=== PATIENT | male | born 1945 | race Caucasian/White ===

== ENCOUNTER 2016-12-08 13:13 | Emergency (ER) | payer MEDICARE ==
[2016-12-08] MEDS ORDERED: Thiamine HCl 200 MG/2 ML VIAL ONE (13:32)
[2016-12-08 14:01] LABS: ALT (SGPT) 31 U/L (8-55); AST (SGOT) 109 U/L (5-34); Albumin 3.9 g/dL (3.4-4.8); Alkaline Phosphatase 99 U/L (40-150); Anion Gap 14 mmol/L (10-20); BUN (Urea Nitrogen) 8 mg/dL (8.4-25.7); Bilirubin, Total 1.5 mg/dL (0.2-1.2); Calc. Creatinine Clearance 0 mL/min (70-130); Calcium 8.4 mg/dL (7.8-10.44); Carbon Dioxide 23 mmol/L (23-31); Chloride 88 mmol/L (98-107); Estimated GFR-MDRD Greater than 90; Glucose 116 mg/dL (80-115); Lipase 29 U/L (8-78); Potassium 3.8 mmol/L (3.5-5.1); Protein, Total 7.9 g/dL (5.8-8.1); Sodium 121 mmol/L (136-145)
[2016-12-08 14:05] LABS: CKMB 2.3 ng/mL (0-6.6); Troponin I Less than 0.010 ng/mL (< 0.028)
[2016-12-08 14:07] LABS: #Eosinphils 0.1 thou/uL (0.0-0.7); #Lymphocytes 0.8 thou/uL (1.20-3.40); #Monocytes 0.6 thou/uL (0.11-0.59); #Neutrophils 3.7 thou/uL (1.40-6.50); %Basophils 0.8 % (0.0-1.0); %Eosinophils 1.2 % (0.0-10.0); %Monocytes 11.2 % (0.0-10.0); %Neutrophils 70.8 % (42.0-75.0); Hemoglobin 13.9 g/dL (14.0-18.0); Large Platelets SLIGHT; MDiff Complete? YES; Mean Corpuscular HGB CONC 37.2 g/dL (32.0-36.0); Mean Platelet Volume 9.5 fL (7.4-10.4); PLT Morphology Comment NO PATIENT HISTORY. BLOOD SMEAR CONFIRMS PLATLET COUNT.; Platelet Count 90 thou/uL (130-400); RBC Distribution Width 11.2 % (11.5-14.5); Red Blood Cell (RBC) Count 3.98 mill/uL (4.70-6.10); White Blood Cell (WBC) Count 5.2 thou/uL (4.8-10.8)
--- NOTE | 2016-12-08 18:42 | CT ---
CT OF THE BRAIN WITHOUT CONTRAST: Date: 12/08/[address] shows mild atrophy and mild compensatory dilatation of the ventricles. Some minimal deep white matter lucency is probably due to minor degrees of chronic ischemic change. There were n o findings strongly suggestive of an acute stroke. No mass or hemorrhage was seen. The calvarium crystal ears intact and the visible sinuses are clear. The ventricles are commensurate with the degree of at rophy present. IMPRESSION: Atrophy and chronic ischemic changes. No acute intracranial findings. POS: HOME
--- NOTE | 2016-12-08 18:43 | RAD ---
PORTABLE CHEST: Date: 12/08/16 An AP portable film at 1330 hours is compared with a 10/12/07 study. The heart is normal in size. There is no congestive change or pleural effusion. A little basilar amaris ear streaking, particularly on the right, is probably some atelectasis. No major lobar infiltrate wa s seen. The trachea is midline. IMPRESSION: Other than perhaps some minimal basilar atelectasis, no acute findings. POS: HOME
== END 2016-12-08 14:54 | disposition short-term general hospital (02) ==
LOC: BURERS 13:13
DX: E87.1 Hypo-osmolality and hyponatremia (principal); F10.10 Alcohol abuse, uncomplicated; R27.0 Ataxia, unspecified; R25.1 Tremor, unspecified; Z79.899 Other long term (current) drug therapy
CPT/HCPCS: 36415; 36416; 70450; 71010; 80053; 82140; 82553; 83605; 83690; 83880; 84484; 85025; 87040; 93005; 96361; 96374; 96375; J3411

== ENCOUNTER 2021-01-03 19:32 | Emergency (ER) | payer MEDICARE, OTHER | END 2021-01-03 20:22 | disposition home or self-care (01) | LOC: BURERS 19:32 | DX: S92.415A Nondisplaced fracture of proximal phalanx of left great toe, initial encounter for closed fracture (principal); W55.29XA Other contact with cow, initial encounter ==